=== PATIENT | female | born 1970 | race African-American/Black ===

== ENCOUNTER 2017-06-08 08:24 | Emergency (ER) | payer OTHER, SELFPAY ==
[2017-06-08] MEDS ORDERED: Ketorolac Tromethamine 60 MG/2 ML VIAL ONE (09:12)
== END 2017-06-08 09:49 | disposition home or self-care (01) ==
LOC: ERS 08:24
DX: J11.1 Influenza due to unidentified influenza virus with other respiratory manifestations (principal)
CPT/HCPCS: 96372; J1885

== ENCOUNTER 2019-10-28 04:17 | Observation (INO) | payer OTHER ==
[2019-10-28] MEDS ORDERED: Ondansetron PF 4 MG/2 ML Vial ONE (04:44)
[2019-10-28] MEDS ORDERED: Nitroglycerin 2% Ointment 1 INCH/1 GM Packet ONE (04:45)
[2019-10-28 05:06] LABS: #Basophils 0.1 thou/uL (0.0-0.2); #Eosinphils 0.4 thou/uL (0.0-0.7); #Lymphocytes 2.8 thou/uL (1.20-3.40); #Monocytes 0.5 thou/uL (0.11-0.59); #Neutrophils 4.1 thou/uL (1.40-6.50); %Basophils 1.2 % (0.0-1.0); %Lymphocytes 35.3 % (21.0-51.0); %Monocytes 6.2 % (0.0-10.0); %Neutrophils 52.3 % (42.0-75.0); Hemoglobin 12.5 g/dL (12.0-16.0); Mean Corpuscular HGB CONC 31.6 g/dL (32.0-36.0); Mean Corpuscular Hemoglobin 26.9 pg (27.0-31.0); Mean Corpuscular Volume 85.3 fL (78.0-98.0); Mean Platelet Volume 8.6 fL (7.4-10.4); Platelet Count 314 thou/uL (130-400); RBC Distribution Width 13.5 % (11.5-14.5); Red Blood Cell (RBC) Count 4.66 mill/uL (4.20-5.40); White Blood Cell (WBC) Count 7.8 thou/uL (4.8-10.8)
[2019-10-28 05:27] LABS: ALT (SGPT) 23 U/L (8-55); AST (SGOT) 20 U/L (5-34); Albumin 4.3 g/dL (3.5-5.0); Alkaline Phosphatase 67 U/L (40-110); Anion Gap 15 mmol/L (10-20); BUN (Urea Nitrogen) 15 mg/dL (7.0-18.7); Bilirubin, Total Less than 0.2 mg/dL (0.2-1.2); Calc. Creatinine Clearance 0 mL/min (70-130); Calcium 9.4 mg/dL (7.8-10.44); Carbon Dioxide 24 mmol/L (22-29); Chloride 104 mmol/L (98-107); Estimated GFR-MDRD 79; Globulin 3.4 g/dL (2.4-3.5); Glucose 145 mg/dL (70-105); Lipase 44 U/L (8-78); Potassium 3.9 mmol/L (3.5-5.1); Protein, Total 7.7 g/dL (6.0-8.3); Sodium 139 mmol/L (136-145)
--- NOTE | 2019-10-28 07:40 | RAD ---
Exam: Chest one view HISTORY:Chest pain. Chest tightness and vomiting. Comparison: 10/16/2018 FINDINGS: Cardiac silhouette: Normal Aorta: Unremarkable Pulmonary vessels: Normal Costophrenic angles: Clear LUNGS: Right lower lobe infiltrate. Pneumothorax: None Osseous abnormalities: None IMPRESSION: Right lower lobe infiltrate. Continued surveillance to ensure resolution
[2019-10-28 08:53] LABS: Troponin I Less than 0.010 ng/mL (< 0.028)
[2019-10-28 11:23] LABS: Troponin I Less than 0.010 ng/mL (< 0.028)
== END 2019-10-28 11:13 | disposition short-term general hospital (02) ==
LOC: ERS 04:17 → ERHOLD 07:30
PROVIDERS: ADMIT Internal Medicine; ATTEND Internal Medicine
DX: R91.8 Other nonspecific abnormal finding of lung field (principal); R07.89 Other chest pain; I10 Essential (primary) hypertension
CPT/HCPCS: 36415; 71045; 80053; 83690; 83880; 84484; 85025; 93005; 96374; J2405

== ENCOUNTER 2020-04-24 02:46 | Emergency (ER) | payer OTHER, SELFPAY ==
[2020-04-24] MEDS ORDERED: Ketorolac Tromethamine 30 MG/ML VIAL ONE (03:10)
[2020-04-24] MEDS ORDERED: Lidocaine Viscous Sol 2% 15 ml UD Cup ONE (03:11)
[2020-04-24] MEDS ORDERED: Mag-Al 1200 mg/1200 mg/30 ML UDCUP ONE (03:11)
[2020-04-24 03:24] LABS: #Basophils 0.1 thou/uL (0.0-0.2); #Eosinphils 0.4 thou/uL (0.0-0.7); #Lymphocytes 2.7 thou/uL (1.20-3.40); #Monocytes 0.5 thou/uL (0.11-0.59); %Eosinophils 4.2 % (0.0-10.0); %Lymphocytes 31.2 % (21.0-51.0); %Monocytes 5.6 % (0.0-10.0); %Neutrophils 57.9 % (42.0-75.0); Hemoglobin 13.6 g/dL (12.0-16.0); Mean Corpuscular HGB CONC 32.6 g/dL (32.0-36.0); Mean Corpuscular Hemoglobin 27.6 pg (27.0-31.0); Mean Corpuscular Volume 84.8 fL (78.0-98.0); Mean Platelet Volume 8.5 fL (7.4-10.4); Platelet Count 308 thou/uL (130-400); RBC Distribution Width 13.9 % (11.5-14.5); Red Blood Cell (RBC) Count 4.91 mill/uL (4.20-5.40); White Blood Cell (WBC) Count 8.5 thou/uL (4.8-10.8)
[2020-04-24 03:37] LABS: ALT (SGPT) 18 U/L (8-55); AST (SGOT) 17 U/L (5-34); Albumin 4.9 g/dL (3.5-5.0); Alkaline Phosphatase 79 U/L (40-110); Anion Gap 20 mmol/L (10-20); BUN (Urea Nitrogen) 21 mg/dL (9.8-20.1); Bilirubin, Total 0.2 mg/dL (0.2-1.2); Calc. Creatinine Clearance 0 mL/min (70-130); Calcium 9.8 mg/dL (7.8-10.44); Carbon Dioxide 24 mmol/L (22-29); Chloride 100 mmol/L (98-107); Globulin 3.8 g/dL (2.4-3.5); Glucose 169 mg/dL (70-105); Lipase 40 U/L (8-78); Potassium 3.8 mmol/L (3.5-5.1); Protein, Total 8.7 g/dL (6.0-8.3); Sodium 140 mmol/L (136-145)
--- NOTE | 2020-04-24 07:54 | RAD ---
XR Chest 1 View Portable History: Chest pain Comparison: Radiograph October 2019 Findings: Lungs are clear. No pneumothorax or effusion. Cardiac silhouette and mediastinal contours a re within normal limits. No acute osseous abnormality. Impression: No acute intrathoracic abnormality.
--- NOTE | 2020-04-29 11:00 | EKG ---
Test Reason : Blood Pressure : / mmHG Vent. Rate : 065 BPM Atrial Rate : 065 BPM P-R Int : 180 ms QRS Dur : 076 ms QT Int : 410 ms P-R-T Axes : 049 040 016 degrees QTc Int : 426 ms Normal sinus rhythm with sinus arrhythmia Normal ECG Confirmed by SUNG JOHNSON DO ([id number]), society editor CANDIDO GAVIN ([id number] on 04/29/2020 11:00:10 AM Referred By: Confirmed By:SUNG JOHNSON DO
== END 2020-04-24 04:35 | disposition home or self-care (01) ==
LOC: ERS 02:46
DX: K29.70 Gastritis, unspecified, without bleeding (principal); R07.89 Other chest pain; I10 Essential (primary) hypertension; Z79.899 Other long term (current) drug therapy
CPT/HCPCS: 71045; 80053; 83690; 84484; 85025; 93005; 94760; 96374; J1885

== ENCOUNTER 2020-05-09 02:45 | Observation (INO) | payer SELFPAY ==
[2020-05-09] MEDS ORDERED: Ketorolac Tromethamine 30 MG/ML VIAL ONE ×2 (03:23→09:48)
[2020-05-09 03:24] LABS: #Basophils 0.1 thou/uL (0.0-0.2); #Eosinphils 0.3 thou/uL (0.0-0.7); #Lymphocytes 2.8 thou/uL (1.20-3.40); #Monocytes 0.4 thou/uL (0.11-0.59); #Neutrophils 6.3 thou/uL (1.40-6.50); %Basophils 0.8 % (0.0-1.0); %Eosinophils 3.1 % (0.0-10.0); %Lymphocytes 28.1 % (21.0-51.0); %Monocytes 4.1 % (0.0-10.0); Hemoglobin 13.2 g/dL (12.0-16.0); Mean Corpuscular HGB CONC 32.2 g/dL (32.0-36.0); Mean Corpuscular Hemoglobin 27.5 pg (27.0-31.0); Mean Corpuscular Volume 85.6 fL (78.0-98.0); Mean Platelet Volume 8.2 fL (7.4-10.4); Platelet Count 315 thou/uL (130-400); RBC Distribution Width 13.9 % (11.5-14.5); Red Blood Cell (RBC) Count 4.81 mill/uL (4.20-5.40); White Blood Cell (WBC) Count 9.9 thou/uL (4.8-10.8)
[2020-05-09] MEDS ORDERED: Mag-Al 1200 mg/1200 mg/30 ML UDCUP ONE (03:25)
[2020-05-09] MEDS ORDERED: Lidocaine Viscous Sol 2% 15 ml UD Cup ONE (03:25)
[2020-05-09 03:53] LABS: ALT (SGPT) 19 U/L (8-55); AST (SGOT) 27 U/L (5-34); Albumin 4.6 g/dL (3.5-5.0); Alkaline Phosphatase 70 U/L (40-110); Anion Gap 20 mmol/L (10-20); BUN (Urea Nitrogen) 18 mg/dL (9.8-20.1); Bilirubin, Total 0.2 mg/dL (0.2-1.2); CK (CPK) 426 U/L (29-168); Calc. Creatinine Clearance 0 mL/min (70-130); Calcium 9.7 mg/dL (7.8-10.44); Carbon Dioxide 23 mmol/L (22-29); Chloride 101 mmol/L (98-107); Globulin 4.2 g/dL (2.4-3.5); Glucose 182 mg/dL (70-105); Lipase 39 U/L (8-78); Potassium 4.3 mmol/L (3.5-5.1); Protein, Total 8.8 g/dL (6.0-8.3); Sodium 140 mmol/L (136-145)
[2020-05-09] MEDS ORDERED: Piperacillin/Tazobactam 4.5 GM VIAL ONE (04:12)
--- NOTE | 2020-05-09 07:49 | RAD ---
RADIOGRAPH CHEST 1 VIEW: DATE: 05/09/2020 HISTORY: 50-year-old female with chest pain FINDINGS: There are no airspace densities, pulmonary edema, pneumothorax, or cardiomegaly. The lateral costophr enic angles are sharp. IMPRESSION: No acute cardiopulmonary findings.
--- NOTE | 2020-05-09 07:50 | ULT ---
PRELIMINARY REPORT/[facility]/EMERGENCY AFTER HOURS PROCEDURE: Receipt of this report by the clinical staff was confirmed with TABITHA HOFFMAN MD by Amilcar Thomas on May 09, 2020 04:04:00 WAITER/WAITRESS INFORMAL. Addendum electronically signed by Jami Thomas on May 09, 2020 4:04:22 AM WAITER/WAITRESS INFORMAL EXAM: US Abdomen Limited, Right Upper Quadrant. CLINICAL HISTORY: Epigastric pain, N/V TECHNIQUE: Real-time ultrasound of the right upper quadrant with image documentation. COMPARISON: None provided. FINDINGS: LIVER: Measures 17.3 cm and demonstrates fatty infiltration. GALLBLADDER: Cholelithiasis is noted with prominence of the wall at 3.1 mm along with pericholecystic fluid. The patient demonstrated a positive sonographic Mcgee's sign. COMMON BILE DUCT: No dilation. Measures 5.8 mm PANCREAS: A 1.4 x 1.4 x 1.3 cm complex lesion appears to be present in the mid pancreas. The distal p ancreas is obscured by overlying bowel gas. RIGHT KIDNEY: Unremarkable. No hydronephrosis. Measures 10.1 cm IMPRESSION: The findings are consistent with acute cholecystitis. A complex mid pancreatic lesion a ppears to be present and dedicated pancreatic protocol CT versus MRI is advised ELECTRONICALLY SIGNED BY: Jonathan Calderon MD May 09, 2020 4:01:30 AM WAITER/WAITRESS INFORMAL FINAL REPORT EMERGENCY AFTER HOURS STUDY ULTRASOUND ABDOMEN LIMITED: (RIGHT UPPER QUADRANT) DATE:05/09/2020. TIME: 3:41 AM. HISTORY: Epigastric abdominal pain with nausea and vomiting in 50-year-old female. FINDINGS: Gallbladder:Multiple gallstones at proximal body, neck, and fundus. Wall thickness 2 to 3 mm, within normal limits. No pericholecystic fluid. No excessive luminal distention. Positive tenderness over gallbladder. Common duct: 6 mm. Liver:Normal size and echogenicity. Pancreas:1 x 1.5 cm hypoechoic lesion with irregular margins at pancreatic body. Right kidney:No hydronephrosis. IMPRESSION: 1) Positive for cholelithiasis. If there is clinical concern for acute cholecystitis, consider nuclea r medicine hepatobiliary scan. 2) Small hypoechoic pancreatic lesion. Recommend CT abdomen with and without contrast, pancreas coleen col. No major disagreement with preliminary report by [facility]. Transcribed Date/Time: 05/09/2020 8:08 AM
[2020-05-09] MEDS ORDERED: Morphine 4 MG/ML VIAL SLOW IVP PRN (07:54)
[2020-05-09] MEDS ORDERED: Morphine 2 MG/ML VIAL SLOW IVP PRN (07:54)
[2020-05-09] MEDS ORDERED: Acetaminophen 500 MG TAB PO PRN (07:54)
[2020-05-09] MEDS ORDERED: Ketorolac Tromethamine 30 MG/ML VIAL IVP PRN (07:54)
[2020-05-09] MEDS ORDERED: Acetaminophen 500 MG TAB PO SCH (08:00)
[2020-05-09] MEDS ORDERED: Lactated Ringer's 1,000 ML IV SCH (08:00)
[2020-05-09] MEDS ORDERED: Ketorolac Tromethamine 30 MG/ML VIAL IVP SCH (08:00)
[2020-05-09 08:07] VITALS: BMI 41.0
[2020-05-09] MEDS ORDERED: Sodium Chloride 0.9% 10 ML ONE ×2 (08:32→08:40)
[2020-05-09 08:34] LABS: SARS-CoV-2 MS2 Positive; SARS-CoV-2 N Gene Negative; SARS-CoV-2 S Gene Negative; SARS-CoV-2 by NAA Not Detected (NotDetected); SARS-CoV-2 orf1ab Negative
[2020-05-09] MEDS ORDERED: Scopolamine 1.5 mg/72 hour Patch TD SCH (09:00)
--- NOTE | 2020-05-09 09:31 | HP ---
HISTORY OF PRESENT ILLNESS: Makayla Frank is a 50-year-old black female, 3, para 3, status post hysterectomy, professional nursing tutor caregiver, presents with epigastric right upper quadrant pain. Ultrasound revealing a sonographic positive Mcgee sign and a mid pancreatic body cystic complex mass 1.3 x 1.4 x 1.4 cm. Liver function tests are normal. She is morbidly obese, 41 BMI. She has history of hypertension, takes hydrochlorothiazide at home. She was admitted for laparoscopic cholecystectomy. I have discussed with Dr. Carlitos Puente. We will plan on CT scan pancreas protocol with IV, but without oral contrast to clarify the pancreatic mass seen on ultrasound. Risks of infection, bleeding, reoperation, risks associated with laparoscopic cholecystectomy discussed. Plan, discharge home today postoperatively. ALLERGIES: NONE. TOBACCO: None. ALCOHOL: Socially. MEDICATIONS: Hydrochlorothiazide daily. PAST SURGICAL HISTORY: Hysterectomy. PAST MEDICAL HISTORY: Hypertension. FAMILY HISTORY: Noncontributory. REVIEW OF SYSTEMS: Ten-point noncontributory. PHYSICAL EXAMINATION: VITAL SIGNS: 5 feet, 210 pounds, 41 BMI, 98.2 degrees, 63, 159/80. LUNGS: Clear to auscultation. CARDIAC: Regular rate and rhythm without murmur or gallop. ABDOMEN: Soft. Tenderness in right upper quadrant. Positive Mcgee sign. EXTREMITIES: No edema. NEUROLOGIC: Neurologically intact. Mcgrew Coma Scale 15. HEAD, EARS, EYES, NOSE, AND THROAT: Unremarkable. Sclerae nonicteric. SKIN: Nonjaundiced. No lymphadenopathy in neck, axilla, or groins. ASSESSMENT AND PLAN: 1. Acute cholecystitis. We will plan laparoscopic video cholecystectomy. Risks of infection, bleeding, visceral, and biliary injury discussed. Questions answered. 2. Pancreatic cystic mass. Plan, CT scan pancreas protocol preoperatively without oral contrast. 3. Hypertension. 4. Metabolic syndrome, morbid obesity. Job ID: [id number]
[2020-05-09] MEDS ORDERED: PROPOFOL 200 MG/20 ML VIAL ONE (09:48)
[2020-05-09] MEDS ORDERED: Rocuronium Bromide 10 MG/ML (10ML VIAL) ONE (09:48)
[2020-05-09] MEDS ORDERED: diphenhydrAMINE 50 MG/ML VIAL ONE (09:48)
[2020-05-09] MEDS ORDERED: Dexamethasone 20 MG/5 ML VIAL ONE (09:48)
[2020-05-09] MEDS ORDERED: Glycopyrrolate 0.2 MG/ML 5 ML SYRINGE ONE (09:48)
[2020-05-09] MEDS ORDERED: Ondansetron PF 4 MG/2 ML Vial ONE (09:48)
--- NOTE | 2020-05-09 11:40 | CT ---
CT Abdomen W WO Con History: Pancreatic mass Comparison: Ultrasound same day Findings: Lung bases are clear. No pericardial effusion. Mild mucosal hyperenhancement and submucosal edema of the gallbladder with cholelithiasis. No intrahe patic or extrahepatic biliary dilatation. No pancreatic mass is appreciated. Likely reactive small mikhail hepatis lymph nodes. Normal proximal small bowel rotation. No renal mass. General glands are unremarkable. Pancreas is unremarkable. Impression: 1. Acute cholecystitis. 2. No pancreatic mass appreciated. Recommend follow-up pancreatic protocol MRI in 6 months as a conse rvative measure to evaluate for CT occult pancreatic mass.
[2020-05-09] MEDS ORDERED: Fentanyl 100 MCG/2 ML VIAL ONE ×3 (11:47→13:27)
[2020-05-09] MEDS ORDERED: Bupivacaine 0.25% HCL 30 ML VIAL ONE (11:48)
[2020-05-09] MEDS ORDERED: Lidocaine 1% w/Epinephrine 1:100K 20 ML VIAL ONE (11:48)
[2020-05-09] MEDS ORDERED: traMADol HCl 50 MG TAB PO PRN ×2 (12:10)
[2020-05-09] MEDS ORDERED: SUGAMMADEX SODIUM 200 MG/2 ML VIAL ONE (13:01)
[2020-05-09] MEDS ORDERED: Ondansetron HCl/PF 4 MG/2 ML Vial IVP PRN (13:16)
[2020-05-09] MEDS ORDERED: Iopamidol-370 76% 500 ML 1 ML ONE (13:18)
[2020-05-09 14:29] VITALS: BP 156/72; TEMP 97.5
--- NOTE | 2020-05-09 18:49 | OP ---
DATE OF PROCEDURE: 05/09/2020 PREOPERATIVE DIAGNOSIS: Acute cholecystitis, cholelithiasis, gallbladder outlet obstruction. POSTOPERATIVE DIAGNOSES: Acute cholecystitis, cholelithiasis, gallbladder outlet obstruction, morbid obesity. Note, preoperative ultrasound suggested midbody pancreatic mass, but CAT scan revealed the pancreas to be normal. PROCEDURE PERFORMED: Laparoscopic video cholecystectomy. ANESTHESIA: General, local 0.5% Marcaine 30 mL mixed with 1% Xylocaine with epinephrine 20 mL. DESCRIPTION OF PROCEDURE: The patient was taken to the operating room, where under general anesthesia, abdomen was prepared with ChloraPrep and draped in routine fashion. Local anesthetic was infiltrated in the skin and subcutaneous tissue about each port site. Infraumbilical incision made, pneumoperitoneum to 15 mmHg was obtained with a Veress needle, replaced with a 5 port, video laparoscope inserted. Right subxiphoid incision was made and 11 port placed, right subcostal incision made at midclavicular entrance line and 5 ports placed. Fundus of the gallbladder grasped at the cephalad. There was some adhesions over the liver dome taken down to enable reflection of the liver. Infundibulum grasped laterally. There was large stone blocking the gallbladder outlet. Cystic artery and duct dissected free, critical view obtained. Cystic artery and duct doubly clipped proximally, divided, and gallbladder dissected free from liver bed obtaining good hemostasis prior to division of final peritoneal attachments, and gallbladder and contents removed, submitted to Pathology. Good hemostasis ensured with cautery. Irrigant and pneumoperitoneum evacuated. All skin incisions were approximated with subdermal 4-[address] [place] glue applied. Job ID: [id number]
--- NOTE | 2020-05-09 20:30 | DIS ---
DATE OF ADMISSION: 05/09/2020 DATE OF DISCHARGE: 05/09/2020 DISCHARGE DIAGNOSES: Chronic cholecystitis, cholelithiasis, morbid obesity, hypertension. Note: Ultrasound demonstrated a mid pancreatic body complex cystic mass, but CAT scan revealed pancreas to be normal. No followup necessary. PROCEDURE PERFORMED: Laparoscopic video cholecystectomy. HISTORY: A 50-year-old female, history of biliary colic, presents with severe episode of pain, presented to the emergency room. Ultrasound revealed gallstones, sonographic positive Mcgee sign, normal bile duct caliber. Liver function tests were normal. The patient's ultrasound also revealed a mid body complex cystic mass for which CAT scan and pancreatic protocol ordered and revealed the pancreas to be normal. The patient underwent laparoscopic cholecystectomy postoperatively, convalesced, tolerated liquids. Discharge home. Advil, Tylenol [id number], Ultram if needed for pain. Diet and activity as tolerated. Follow up in my office in 2 to 3 weeks. Job ID: [id number]
[2020-05-10] MEDS ORDERED: Hydrochlorothiazide 25 MG TAB PO SCH (09:00)
[2020-05-10] MEDS ORDERED: FLU VACC QS2020-21(6MOS UP)/PF 60 MCG/0.5 ML SYRINGE IM ONE (12:30)
--- NOTE | 2020-05-13 16:58 | EKG ---
Test Reason : Blood Pressure : / mmHG Vent. Rate : 074 BPM Atrial Rate : 074 BPM P-R Int : 174 ms QRS Dur : 070 ms QT Int : 372 ms P-R-T Axes : 056 023 013 degrees QTc Int : 412 ms Normal sinus rhythm with sinus arrhythmia Normal ECG Confirmed by UMA GRAVES DO ([id number]), slot editor CANDIDO GAVIN ([id number]) on 05/13/2020 4:58:27 PM Referred By: Confirmed By:UMA GRAVES DO
[2020-05-14] MEDS ORDERED: Ibuprofen 600 MG TAB PO PRN (13:00)
== END 2020-05-09 17:15 | disposition home or self-care (01) ==
LOC: ERS 02:45 → ERHOLD 04:32 → 3SE 07:46
PROVIDERS: ADMIT Specialist; ATTEND Specialist
PROC: 0FT44ZZ Resection of Gallbladder, Percutaneous Endoscopic Approach (ICD-10-PCS; principal; 2020-05-09)
DX: K80.13 Calculus of gallbladder with acute and chronic cholecystitis with obstruction (principal); I10 Essential (primary) hypertension; K86.9 Disease of pancreas, unspecified; E88.81 Metabolic syndrome and other insulin resistance; E66.01 Morbid (severe) obesity due to excess calories; Z68.41 Body mass index [BMI] 40.0-44.9, adult; Z79.899 Other long term (current) drug therapy; Z20.828 Contact with and (suspected) exposure to other viral communicable diseases
CPT/HCPCS: 36415; 71045; 74170; 76705; 80053; 82550; 83690; 84484; 85025; 87635; 88304; 93005; 96365; 96375; 96376; G0378; J1100; J1200; J1885; J1956; J2405; J2543; J2704; J3010; Q9967; S0020; U0003